=== PATIENT | female | born 1960 | race Caucasian/White ===

== ENCOUNTER → 2018-08-29 | Outpatient (CLI) | payer BC ==
[~2018-08-29] MED LIST: Barium Sulfate w/v 2.1% Oral Susp 450 ML Bottle PO ONE; Iopamidol 612 MG/ML 100 ML Bottle IVPUSH ONE
--- NOTE | 2018-08-29 15:41 | CT ---
History: 58-year-old (114 114 pound (108 # in clinic) cyst pound diabetic female smoker with COPD and "unexplained" weight loss. Scan technique: Volume acquisition of data from the abdomen and chest abdomen and pelvis obtained after oral ingestion 2 bottles Redicat barium and during/after intravenous infusion 100 cc nonionic Isovue contrast were patient was lying supine on the Siemens multislice scanner [place], [place]. All data archived in the PACS system for storage, reformatting axial/sagittal/coronal planes and study. Interpretation:
== END ==
LOC: DL.CT 08:09
PROVIDERS: ATTEND Internal Medicine
DX: J44.9 Chronic obstructive pulmonary disease, unspecified (principal); R63.4 Abnormal weight loss
CPT/HCPCS: 71260; 74177; Q9967